=== PATIENT | female | born 1985 | race Caucasian/White ===

== ENCOUNTER 2020-08-27 01:26 | Inpatient (IN) | payer OTHER ==
--- NOTE | 2020-08-27 02:21 | PDOC ---
History of Present Illness - General Chief Complaint: Pain Stated Complaint: ABD PAIN Time Seen by Provider: 08/27/20 01:51 History Source: Patient - History of Present Illness Initial Comments: 08/27/20 03:42 35-year-old female complaining of right upper quadrant and epigastric pain since 10 PM. Patient reports that she recently gave 5-1/2 weeks ago normal vaginal delivery. Complaining of heavy vaginal bleeding for 6 hours yesterday today with small amount of spotting, patient reports pelvic cramping. denies vaginal bleeding today. Denies fever/chills, nausea, vomiting. patient is not currently breast feeding. PMHX: leukocytosis 08/27/20 04:07 Past History - Medical History Allergies/Adverse Reactions: Allergies Allergy/AdvReac Type Severity Reaction Status Date / Time sulfamethoxazole Allergy Verified 08/27/20 02:01 Home Medications: Ambulatory Orders NK [No Known Home Medication] 08/27/20 - Reproductive History Is Patient Now?: No - Psycho-Social/Smoking History Smoking History: Never smoked Have you smoked in the past 12 months: No Information on smoking cessation initiated: No - Substance Abuse Hx (Audit-C & DAST Scrn) How often the patient has a drink containing alcohol: Never Score: In Men: 4 or > Positive; In Women: 3 or > Positive: 0 Screen Result (Pos requires Nsg. Audit-10AR): Negative In the last yr the pt used illegal drug/Rx for NonMed reason: No Score: Yes response is considered Positive: 0 Screen Result (Positive result requires Nsg. DAST-10): Negative Review of Systems - Review of Systems Able to Perform ROS?: Yes Is the patient limited Algerian proficient: No Constitutional: No: Symptoms Reported, See HPI, Chills, Diaphoresis, Fever, Loss of Appetite, Malaise, Night Sweats, Weakness, Weight Stable, Unintentional Wgt. Loss, Unexplained wgt Loss, Other HEENTM: Yes: Other ABD/GI: Yes: Abdominal cramping : No: Symptoms Reported, See HPI, Burning, Dysuria, Discharge, Frequency, Flank Pain, Hematuria, Incontinence, Pain, Urgency, Testicular Mass, Testicular Swelling, Lesions, Testicular Pain, Other Integumentary: Yes: Other (no breast pain) *Physical Exam - Vital Signs Last Vital Signs Temp Pulse Resp BP Pulse Ox 98.7 F 78 15 152/93 99 08/27/20 01:51 08/27/20 01:51 08/27/20 01:51 08/27/20 01:51 08/27/20 01:51 - Physical Exam General Appearance: Yes: Appropriately Dressed HEENT: positive: Other (no breast tenderness) Respiratory/Chest: positive: Lungs Clear, Normal Breath Sounds Female Pelvic Exam: positive: normal external exam, cervical os closed, normal adnexa, other (minimal vaginal bleeding in vault). negative: CMT Gastrointestinal/Abdominal: positive: Normal Bowel Sounds, Tender (RUQ/ epigastric), Soft Musculoskeletal: positive: Normal Inspection. negative: CVA Tenderness Integumentary: positive: Normal Color, Dry, Warm Neurologic: positive: Fully Oriented, Alert ED Treatment Course - LABORATORY CBC & Chemistry Diagram: 08/27/20 02:00 08/27/20 02:00 - RADIOLOGY Radiology Studies Ordered: Category Date Time Status ABDOMEN US -LIMITED [US] Stat Ultrasound 08/27/20 01:50 Taken TRANSVAGINAL ULTRASOUND US [US] Stat Ultrasound 08/27/20 01:50 Taken ED Progress Note - Progress Note Progress Note: 08/27/20 04:08 A: acute cholecystitis; retained products of conception? P: IVF cbc cmp US pain control Medical Decision Making - Medical Decision Making 08/27/20 02:20 Abdominal US: Right upper quadrant ultrasound: The liver is fatty and enlarged up to 18.9 cm, without mass or biliary duct dilation. The gallbladder is distended with stones and sludge and demonstrates a positive sonographic Davis sign but no wall thickening or perich olecystic fluid.. The CBD is not dilated and measures6 millimeters in diameter. Right kidney measures 12.7centimeters in length and is unremarkable. The pancreas and aorta are obscured. Abdominal duplex: The main portal vein demonstrates normal hepatopedal flow.Enlarged fatty liver. Moderate suspicion for acute cholecystitis without biliary duct dilation. 08/27/20 02:27 TVUS: Pelvic ultrasound: Uterus is anteverted and measures 9.4centimeters in length. The endometrium is 2.6 cm in thickness, heterogeneous and hypervascular, highly suspicious for retained products of conception. There are no fibroids. The right ovary measures 2.9centimeters in length, contains a 1.8 cm cyst and demonstrates normal flow. Left ovary not visualized. There is no significant free fluid. Pelvic duplex: There is normal arterial and venous flow in the right ovary. 08/27/20 03:51 08/27/20 04:[address] kay ultrasound reviewed. Recommends outpatient PHOTOGRAPHIC ENGINEER follow-up. Reviewed results with patient discussed acute cholecystitis. Patient reported that she is not willing to have surgery at this point. Patient is willing to stay in the hospital for IV antibiotics. 08/27/20 04:14 patient signed out to Dr. kamara. patient to be admitted to hospital for further management of care. pending CTAP 08/27/20 05:40 Discharge - Discharge Information Problems reviewed: Yes Clinical Impression/Diagnosis: Acute cholecystitis Abdominal pain Qualifiers: Abdominal location: generalized Qualified Code(s): R10.84 - Generalized abdominal pain - Admission Yes - Follow up/Referral - Patient Discharge Instructions - Post Discharge Activity
[2020-08-27] MEDS ORDERED: HYDROmorphone HCL CARPU-JECT 2 MG/1 ML DISP.SYRIN IVPUSH ONE (02:25)
[2020-08-27] MEDS ORDERED: HYDROmorphone HCl 2 MG/ML VIAL ONE (02:36)
[2020-08-27 02:48] LABS: BASO % 0.3 % (0-2.0); EOS % 0.3 % (0-4.5); HEMOGLOBIN 13.7 GM/dL (10.7-15.3); LYMPH % 12.3 % (8-40); MCH 28.3 pg (25.7-33.7); MCHC 32.7 g/dl (32.0-36.0); MEAN CELL VOLUME 86.6 fl (80-96); MONO % 5.4 % (3.8-10.2); NEUT % 81.7 % (42.8-82.8); PLATELET COUNT 283 K/MM3 (134-434); RBC 4.85 M/mm3 (3.60-5.2); RDW 14.7 % (11.6-15.6); WHITE BLOOD COUNT 19.5 K/mm3 (4.0-10.0)
[2020-08-27] MEDS ORDERED: SODIUM CHLORIDE 1,000 ML IV STA (02:56)
[2020-08-27 03:14] LABS: BILIRUBIN,TOTAL 0.6 mg/dL (0.2-1); CALCIUM 10.1 mg/dL (8.5-10.1); CREATININE 0.7 mg/dL (0.55-1.3); POTASSIUM 4.6 mmol/L (3.5-5.1)
[2020-08-27] MEDS ORDERED: PIPERACILLIN/TAZOB 3.375 GM 3.375 GM in DEXTROSE 5%-WATER - 50 ML IVPB ONE (04:06)
[2020-08-27] MEDS ORDERED: PIPERACILLIN/TAZOB 3.375 GM 3.375 GM/50 ML BAG IVPB ONE (04:16)
--- NOTE | 2020-08-27 04:33 | PN ---
Teaching Attending Note Name of Resident: Harshil Velasquez ATTENDING PHYSICIAN STATEMENT I saw and evaluated the patient. I reviewed the resident's note and discussed the case with the resident. I agree with the resident's findings and plan as documented. SUBJECTIVE: Patient is a 35 year old woman with a PMH of Factor 5 Leiden deficiency (on Lovenox), Gestational DM and HTN, Normal vaginal delivery 5-1/2 ago and Hypothyroidism presenting to the ER with complain of right upper quadrant and epigastric pain since 10 PM. Reports heavy vaginal bleeding for 6 hours yesterday, and today had small amount of spotting with associated pelvic cramping. Not currently breast feeding. Patient denies chest pain, shortness of breath, headache, palpitations, dizziness, fever, chills, nausea, vomiting, diarrhea, constipation, dysuria, frequency, urgency, melena, hematochezia or hematuria. Denies alcohol, tobacco or illicit drug use. No sick contacts or recent travels. Family history is unremarkable. OBJECTIVE: Alert Vital Signs Period Temp Pulse Resp BP Sys/Ross Pulse Ox Last 24 Hr 98.7 F 76-89 15-20 132-152/86-93 98-99 HEENT: No Jaundice, eye redness or discharge, PERRLA, EOMI. Normocephalic, atraumatic. External ears are normal and hearing is grossly intact. No nasal discharge. Neck: Supple, nontender. No palpable adenopathy or thyromegaly. No JVD Chest: Good effort. Clear to auscultation and percussion. Heart: Regular. No S3, rub or murmur Abdomen: Not distended, soft, RUQ and lower abdominal tenderness and no HSM. No rebound or guarding. Normal bowel sounds. Ext: Peripheral pulses intact. No leg edema. Skin: Warm and dry. No petechiae, rash or ecchymosis. Neuro: Alert. Oriented x3. CN 2-12 grossly intact. Sensation grossly intact in all four extremities and DTR are symmetric. Psych: Appropriate mood and affect. Good insight. Home Medications Medication Instructions Recorded NK [No Known Home Medication] 08/27/20 Abnormal Lab Results 08/27/20 08/27/20 02:00 02:00 WBC 19.5 H Absolute Neuts (auto) 15.9 H Anion Gap 6 L Random Glucose 122 H AST 85 H ALT 68 H Current Medications Generic Name Dose Route Start Last Admin Trade Name Concepcion PRN Reason Stop Dose Admin Piperacillin Sod/Tazobactam 50 mls @ 100 mls/hr 08/27/20 04:06 08/27/20 04:28 Sod 3.375 gm/ Dextrose IVPB 08/27/20 04:35 100 mls/hr ONCE ONE Administration Protocol Lactated Ringer's 1,000 ml in 1,000 mls @ 125 mls/hr 08/27/20 04:15 Lactated Ringers Solution IV ASDIR [facility] ASSESSMENT AND PLAN: 1. Acute cholecystitis/Rule out endometritis - Right upper quadrant ultrasound report - The liver is fatty and enlarged up to 18.9 cm, without mass or biliary duct dilation. The gallbladder is distended with stones and sludge and demonstr ates a positive sonographic Davis sign but no wall thickening or pericholecystic fluid. The CBD is not dilated and measures6 millimeters in diameter. Right kidney measures 12.7 centimeters in length and is unremarkable. The pancreas and aorta are obscured. Abdominal duplex: The main portal vein demonstrates normal hepatopedal flow. Enlarged fatty liver. Moderate suspicion for acute cholecystitis without biliary duct dilation. Trans vaginal ultrasound report - Uterus is anteverted and measures 9.4 centimeters in length. Theendometrium is 2.6 cm in thickness, heterogeneous and hypervascular, highly suspicious for retained products of conception. There are no fibroids. The right ovary measures 2.9 centimeters in length, contains a 1.8 cm cyst and demonstrates normal flow. Left ovary not visualized. There is no significant free fluid. Pelvic duplex: There is normal arterial and venous flow in the right ovary. Will get CT scan of abdomen/pelvis, COVID-19 test, urinalysis, blood cultures, PT/INR, HbA1c, keep her NPO, monitor blood glucose and implement sliding scale insulin regimen, continue IV Zosyn, IV NS and consult Surgery/SHIP FITTER/ID and GI. Monitor BP closely - may need antihypertensive drugs upon discharge. EKG shows NSR at 81/minute and QTc 476 with no significant acute ischemic ST-T wave changes. Will avoid drugs that may prolong QTc. Will continue comprehensive care for all of patients comorbid conditions. 2. Obesity Counseled on the risks associated with obesity. Will provide patient all the necessary assistance, counseling and positive reinforcement to facilitate weight loss. Consult medical device assembler. 3. DVT prophylaxis - Lovenox 40 mg SQ q 24 hours. 4. Advance directives - Full code
[2020-08-27] MEDS: LACTATED RINGERS SOLUTION 1,000 ML/1,000 ML INFUS.BAG IV SCH ×3 (04:46→19:06)
--- NOTE | 2020-08-27 05:37 | CON.OBG ---
Consult Consult Specialty:: structural rigger Referred by:: Stephanie Singleton Reason for Consultation:: 6 weekswith RUQ pain - History of Present Illness Chief Complaint: 35 yrs , s/p 6wks c/o sudden onset of RUQpain all across upper abdomen , severe accompanied by nausea , no vomiting . pt is diagnosed by upper abd us , fatty liver, with sludge & stone in GB suspect ac cholecystitis History of Present Illness: Pt had with perineal repair on 07/18/20 at [facility]. high risk .. wt gain 20-25 lbs during pregn pregn complicated by GDM on Insulin 21 iu HS only . h/o GHTN during last weeks , hence labor was induced . pt states labor course was long 07/18/20 , Baby Girl,wt 7'2" Only Colostrum given to baby. Not Breast feeding . PP pt was discharged on Po Nifedipine , she took for 3 weeks She self Moniters her BP current BP range systolic 115-125,/ diastolic 75-90 during hosp stay & pp she is taking Lovenox 40 sq daily , until f/u visit with her OB PP she had telemed visits with her provider she has lochia rubra on & off accompanied by cramps sometimes, , staining, spotting, she c/o heavy menstural bleeding yesterday for6 hrs , brown staining now . - History Source History Provided By: Patient Limitations to Obtaining History: No Limitations - Past Medical History MERIT SYSTEM DIRECTOR: No: Migraine, Seizure Cardio/Vascular: Yes: HTN (gestational htn rx po nifedipine 3 wks pp ), Other (pt on prophylactic Lovenox pp 40 mg sq ). No: Deep Vein Thrombosis, Murmur Pulmonary: No: Asthma Hepatobiliary: Yes: Cholelithiasis, Cholecystitis Renal/: No: UTI ...LMP: 08/27/20 (pt is post 6 weeks ) ...: No ...: 2 (G1 03/17/2019 sp ab , d&C done ) ...Para: 1 (07/18/2019 girl , 7'2' [facility]) Infectious Disease: Yes: Other (denies) Psych: Yes: Other (denies). No: Addictions, Anxiety, Depression, Panic Rheumatology: Yes: Fibromyalgia (h/o wellbutrin prior to 1st , none in last 2 yrs ) Endocrine: Yes: Hypothyroidism (diagnosed during Pregn . Rx Po Synthyroid 25 mcg daily continuing ) - Past Surgical History Past Surgical History: Yes: None Additional Surgical History: h/o extraction of 4 wisdom teeth at age 13 yrs - Alcohol/Substance Use Hx Alcohol Use: No History of Substance Use: reports: None - Smoking History Smoking history: Never smoked Have you smoked in the past 12 months: No Home Medications - Allergies Allergies/Adverse Reactions: Allergies Allergy/AdvReac Type Severity Reaction Status Date / Time sulfamethoxazole Allergy Verified 08/27/20 02:01 - Home Medications Home Medications: Ambulatory Orders NK [No Known Home Medication] 08/27/20 Review of Systems - Review of Systems Constitutional: reports: Loss of Appetite, Night Sweats Eyes: reports: No Symptoms HENT: reports: No Symptoms Neck: reports: No Symptoms Cardiovascular: reports: No Symptoms Respiratory: reports: No Symptoms Gastrointestinal: reports: Abdominal Pain (upper abdomen), Nausea Genitourinary: reports: Vaginal Bleeding (on & off staining m accompanied by cramps) Breasts: reports: No Symptoms Reported Musculoskeletal: reports: No Symptoms Integumentary: reports: No Symptoms Neurological: reports: No Symptoms. denies: Headache Endocrine: reports: Other (hypothyroid) Hematology/Lymphatic: reports: No Symptoms Psychiatric: reports: No Symptoms Pain Intensity: 8 Physical Exam-SHINGLE SAWYER Vital Signs: Vital Signs Temperature 98.7 F 08/27/20 01:51 Pulse Rate 76 08/27/20 03:29 Respiratory Rate 15 08/27/20 03:29 Blood Pressure 132/86 08/27/20 03:29 O2 Sat by Pulse Oximetry (%) 98 08/27/20 04:14 Selected Entries 08/27/20 01:51 Weight 230 lb Constitutional: Yes: Well Nourished, Moderate Distress, Obese Eyes: Yes: WNL HENT: Yes: WNL, Normocephalic Neck: Yes: WNL Cardiovascular: Yes: WNL Respiratory: Yes: WNL Gastrointestinal: Yes: Soft, Abdomen, Obese, Tenderness (RUQ), Tenderness, Epig astrium. No: Distention, Vomiting ...Rectal Exam: Yes: Deferred Renal/: No: CVA Tenderness - Left, CVA Tenderness - Right, External Genitalia: Yes: Normal ....Post : Yes: Uterus firm (well involuted), Uterus non-tender, Slight lochia serosa (slight brown staining. perineum intact no sutures felt rey wound well healed) Breast(s): Yes: WNL (not BF , dario engirged) Musculoskeletal: Yes: WNL Extremities: Yes: WNL. No: Calf Tenderness Edema: No Integumentary: Yes: WNL Neurological: Yes: WNL, Alert, Oriented ...Motor Strength: WNL Psychiatric: Yes: WNL, Alert, Oriented Labs: CBC, BMP 08/27/20 02:00 08/27/20 02:00 Problem List - Problems (1) Abdominal pain Code(s): R10.9 - UNSPECIFIED ABDOMINAL PAIN Qualifiers: Abdominal location: generalized Qualified Code(s): R10.84 - Generalized abdominal pain (2) Acute cholecystitis Code(s): K81.0 - ACUTE CHOLECYSTITIS (3) Encounter for assessment Code(s): Z39.2 - ENCOUNTER FOR ROUTINE FOLLOW-UP (4) Obesity (BMI 30-39.9) Code(s): E66.9 - OBESITY, UNSPECIFIED Assessment/Plan 35 yrs , 6 week post , on & off minimal bleeding except once yesterday for 6 hrs s/p h/o GHTN on Nifedipine discontinued , GDM on insulin , did not require post delivery on lovenox & synthyroid PNV I doubt about retained POC , ut is well involuted 9cm in size, no need of any procedure from helmet hat puncher point of view. . pt was high risk pregn , she can return to her provider for follow up Upper abdominal pain due to Gall bladder sludge & stone seen on US suspect AC Cholecystitis continue Iv Antibiotics
--- NOTE | 2020-08-27 05:42 | HP ---
CHIEF COMPLAINT: Pelvic cramps/vaginal spotting/RUQ pain PCP:None HISTORY OF PRESENT ILLNESS: Ms. Hilton is a 35F w pmhx factor V leiden deficiency on lovenox injections, hypothyroidism, gestational diabetes, and gestational hypertension reports to the emergency department for 10 days of pelvic cramping and abnormal vaginal bleeding and 1 day of RUQ pain. The patient notes that she also has developed pelvic cramping that is most concerning for her as well as 6 hours of abnormal vaginal bleeding yesterday. She reports heavy vaginal bleeds that started yesterday and continued into today. The patient notes she has given via vaginal delivery 5 1/2 weeks ago without complications. She notes that she started experiencing RUQ pain 10 days ago which she describes as a dull achey sensation in a band like distribution around her epigastrum and mostly in RUQ. She rates the pain to be a 9/10. Denies fever/chills, nausea, vomiting. patient is not currently breast feeding. Patient denies chest pain, shortness of breath, abdominal pain, headache, palpitations, dizziness, fever, chills, nausea, vomiting, diarrhea, constipation, dysuria, frequency, urgency, melena, hematochezia or hematuria. Denies alcohol, tobacco or illicit drug use. No sick contacts or recent travels. Allergies sulfamethoxazole Allergy (Verified 08/27/20 02:01) HOME MEDICATIONS: Home Medications Medication Instructions Recorded NK [No Known Home Medication] 08/27/20 REVIEW OF SYSTEMS See above PHYSICAL EXAMINATION Vital Signs - 24 hr 08/27/20 08/27/20 08/27/20 01:51 02:49 03:29 Temperature 98.7 F Pulse Rate 78 Pulse Rate [ 89 76 Radial] Respiratory 15 20 15 Rate Blood Pressure 152/93 Blood Pressure 142/90 132/86 [Left Arm] O2 Sat by Pulse 99 98 98 Oximetry (%) 08/27/20 04:14 Temperature Pulse Rate Pulse Rate [ Radial] Respiratory Rate Blood Pressure Blood Pressure [Left Arm] O2 Sat by Pulse 98 Oximetry (%) GENERAL: Awake, alert, and fully oriented, in no acute distress. HEAD: Normal with no signs of trauma. LUNGS: Breath sounds equal, clear to auscultation bilaterally. No wheezes, and no crackles. No accessory muscle use. HEART: Regular rate and rhythm, normal S1 and S2 without murmur, rub or gallop. ABDOMEN: RUQ pain, LLQ and RLQ abdominal cramping, normoactive bowel sounds no masses. No hepatomegaly or splenomegaly. LOWER EXTREMITIES: 2+ pulses, warm, well-perfused. No calf tenderness. No peripheral edema. Laboratory Results - last 24 hr 08/27/20 08/27/20 08/27/20 02:00 02:00 02:00 WBC 19.5 H RBC 4.85 Hgb 13.7 Hct 42.0 MCV 86.6 MCH 28.3 MCHC 32.7 RDW 14.7 Plt Count 283 MPV 9.0 Absolute Neuts (auto) 15.9 H Neutrophils % 81.7 Lymphocytes % 12.3 Monocytes % 5.4 Eosinophils % 0.3 Basophils % 0.3 Nucleated RBC % 0 Sodium 137 Potassium 4.6 Chloride 102 Carbon Dioxide 29 Anion Gap 6 L BUN 12.0 Creatinine 0.7 Est GFR (CKD-EPI)AfAm 129.19 Est GFR (CKD-EPI)NonAf 111.47 Random Glucose 122 H Calcium 10.1 Total Bilirubin 0.6 AST 85 H ALT 68 H Alkaline Phosphatase 107 Total Protein 8.0 Albumin 4.0 Lipase 156 Serum , Qual Indeterminate Blood Type Antibody Screen 08/27/20 02:00 WBC RBC Hgb Hct MCV MCH MCHC RDW Plt Count MPV Absolute Neuts (auto) Neutrophils % Lymphocytes % Monocytes % Eosinophils % Basophils % Nucleated RBC % Sodium Potassium Chloride Carbon Dioxide Anion Gap BUN Creatinine Est GFR (CKD-EPI)AfAm Est GFR (CKD-EPI)NonAf Random Glucose Calcium Total Bilirubin AST ALT Alkaline Phosphatase Total Protein Albumin Lipase Serum , Qual Blood Type A POSITIVE Antibody Screen Negative ASSESSMENT/PLAN: Ms. Hilton is a 35F w/o any significant pmhx reports to the emergency department for 2 days of RUQ pain and 1 day of pelvic cramping and abnormal vaginal bleeding. #Abnormal vaginal bleed - Zosyn coverage for both possible endometritis and Cholecystitis - ID consulted - Dr. Rios - CTAP pending - Vaginal US suggest retained POC - Qa Auditor - does not suspect retained POC , no need of any procedure gynecologically - Patient should follow up outpatient for abnormal vaginal bleed #RUQ pain - likely secondary to cholecystitis - Confirmed on limited abdominal US of liver and biliary tree - Elevated LFT - Patient wishes to speak to surgeon before deciding - Dr. Dominguez consulted, will educate patient on her condition and future options - symptomatic treatment for pain control - 1mg morphine - Will get CT scan of abdomen/pelvis, - Keep her NPO - Continue IV Zosyn - GI Consultation - Dr. Jose Daniel Lock #FEN - NPO #DVT ppx - SCDs ATTENDING PHYSICIAN STATEMENT I saw and evaluated the patient. I reviewed the resident's note and discussed the case with the resident. I agree with the resident's findings and plan as documented. SUBJECTIVE: OBJECTIVE: ASSESSMENT AND PLAN:
[2020-08-27 07:58] LABS: EPI CELLS 5 /uL (0-25.1); HYALINE CASTS 0 /uL (0-3.1); PH,URINE >= 9.0 (5.0-8.0); URINE APPEARANCE CLEAR; URINE BACTERIA 76 /uL (0-1359); URINE BILIRUBIN NEGATIVE (NEGATIVE); URINE COLOR YELLOW; URINE GLUCOSE (UA) NEGATIVE (NEGATIVE); URINE KETONE NEGATIVE (NEGATIVE); URINE LEUK ESTERASE NEGATIVE (NEGATIVE); URINE NITRITE NEGATIVE (NEGATIVE); URINE PROTEIN NEGATIVE (NEGATIVE); URINE RBC 6 /uL (0-23.9); URINE UROBILINOGEN 0.2 mg/dL (0.2-1.0); URINE WBC 1 /uL (0-25.8)
[2020-08-27] MEDS ORDERED: ACETAMINOPHEN 325 MG TABLET (FP) PO PRN (09:15)
[2020-08-27] MEDS ORDERED: PIPERACILLIN/TAZOB 3.375 GM 3.375 GM in DEXTROSE 5%-WATER - 50 ML IVPB SCH (10:00)
--- NOTE | 2020-08-27 10:06 | CONSULT ---
- Consultation REQUESTING PROVIDER: CONSULT REQUEST: We have been asked to surgically evaluate this patient for gallstones, acute oj. Hospitalist:Brain Li MD HISTORY OF PRESENT ILLNESS: The patient is a 35 yo female who presents today for acute onset with upper abd pain, like a belt in her upper abd. She had nausea without any emesis. No fevers or chills. The patient gives no previous h/o abd pain similar to this before. She denies any symptoms of gastritis/ulcer disease. Her pain was relieved today with IV pain medications in the ER. The patient is s/p vaginal delivery approximately 5 1/2 weeks ago. Since her delivery she has had some intermittent vaginal bleeding with cramping. On Tuesday of this week she had 6 hours of bright red blood with clots which has now subsided and the cramping is a pain level around 2. Today she has no fever or chills. Last Tuesday she finished a 10 day course of amoxicilln. She was seen and treated in an urgent care2 weeks ago for a fever to 100.2 with complaints of sore throat/body aches. Her CoVID and flu tests were negative at that time. 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 Fibromyalgia, UTI's as child, migraines, constipation, leukocytosis PSHx: wisdom teeth extraction Home Medications Medication Instructions Recorded Enoxaparin [Lovenox -] 0 mg SQ DAILY 08/27/20 Levothyroxine [Synthroid -] 25 mcg PO DAILY 08/27/20 Allergies Allergy/AdvReac Type Severity Reaction Status Date / Time sulfamethoxazole Allergy Verified 08/27/20 02:01 REVIEW OF SYSTEMS: CONSTITUTIONAL: Absent: fever, chills CARDIOVASCULAR: Absent: chest pain, syncope, palpitations RESPIRATORY: Absent: cough, shortness of breath GASTROINTESTINAL: Present: abdominal pain, nausea, vomiting GENITOURINARY: Absent: dysuria, hematuria MUSCULOSKELETAL: Present: back pain, b/l hip pain HEMATOLOGIC/IMMUNOLOGIC: Absent: easy bleeding, easy bruising NEUROLOGIC: Absent: headache PHYSICAL EXAM: GENERAL: Awake, alert, and fully oriented, in no acute distress. EYES: sclera anicteric, conjunctiva clear. LUNGS: Clear to auscultation bilat anteriorly. No wheezes. HEART: Regular rate and rhythm. ABDOMEN: Soft, non-distended, RUQ pain with palpation. Positive [place] LOWER EXTREMITIES: 2+ DP pulses, warm, well-perfused. No calf tenderness. No peripheral edema. NEUROLOGICAL: Normal speech, gait not observed. PSYCH: Cooperative. Good eye contact. Appropriate mood and affect. Vital Signs Temperature 97.9 F 08/27/20 08:02 Pulse Rate 94 H 08/27/20 08:02 Respiratory Rate 18 08/27/20 08:10 Blood Pressure 121/80 08/27/20 08:02 O2 Sat by Pulse Oximetry (%) 100 08/27/20 08:10 Lab Results WBC 19.5 K/mm3 (4.0-10.0) H 08/27/20 02:00 RBC 4.85 M/mm3 (3.60-5.2) 08/27/20 02:00 Hgb 13.7 GM/dL (10.7-15.3) 08/27/20 02:00 Hct 42.0 % (32.4-45.2) 08/27/20 02:00 MCV 86.6 fl (80-96) 08/27/20 02:00 MCHC 32.7 g/dl (32.0-36.0) 08/27/20 02:00 RDW 14.7 % (11.6-15.6) 08/27/20 02:00 Plt Count 283 K/MM3 (134-434) 08/27/20 02:00 Sodium 137 mmol/L (136-145) 08/27/20 02:00 Potassium 4.6 mmol/L (3.5-5.1) 08/27/20 02:00 Chloride 102 mmol/L (98-107) 08/27/20 02:00 Carbon Dioxide 29 mmol/L (21-32) 08/27/20 02:00 Anion Gap 6 MMOL/L (8-16) L 08/27/20 02:00 BUN 12.0 mg/dL (7-18) 08/27/20 02:00 Creatinine 0.7 mg/dL (0.55-1.3) 08/27/20 02:00 Random Glucose 122 mg/dL (74-106) H 08/27/20 02:00 Calcium 10.1 mg/dL (8.5-10.1) 08/27/20 02:00 Blood Type A POSITIVE 08/27/20 02:00 Antibody Screen Negative 08/27/20 02:00 CT scan: no evidence of intra-abd collection, pneumoperitoneum, or bowel obstruction US: cholelithiasis, positive [place] Tranvaginal ultrasound: hyperechoic material within the endometrial cavity, suspicious for retained products of conception Problem List - Problems (1) Cholelithiasis Assessment/Plan: Pt with symptomatic cholelithiasis. Leukocytosis to 19, at baseline her level is around 14. No fevers but having continued pain when IV pain meds wear off. D/w Dr. Dominguez and recommend to continue npo/IV hydration and IV abx. She is receiving Zosyn. Hematology and windows infrastructure engineer notes reviewed. Currently plan is for transfer to her primary PHYSICAL THERAPIST CLINIC DIRECTOR doctors Problems reviewed: Yes Code(s): K80.20 - CALCULUS OF GALLBLADDER W/O CHOLECYSTITIS W/O OBSTRUCTION
[2020-08-27] MEDS ORDERED: DEXTROSE 5%-WATER - 50 ML IVPB ONE ×3 (10:07→20:53)
[2020-08-27] MEDS ORDERED: PIPERACILLIN/TAZOBACTAM 3.375 GM VIAL IVPB ONE ×3 (10:07→20:53)
--- NOTE | 2020-08-27 11:09 | EKG ---
Test Reason : Blood Pressure : / mmHG Vent. Rate : 081 BPM Atrial Rate : 081 BPM P-R Int : 156 ms QRS Dur : 102 ms QT Int : 410 ms P-R-T Axes : 037 045 061 degrees QTc Int : 476 ms POOR DATA QUALITY, INTERPRETATION MAY BE ADVERSELY AFFECTED NORMAL SINUS RHYTHM NORMAL ECG NO PREVIOUS ECGS AVAILABLE Confirmed by MD Eros, Jos eM ([id number]) on 08/27/2020 11:08:41 AM Referred By: Confirmed By:Jose M Cooney MD
--- NOTE | 2020-08-27 12:20 | PN ---
Progress Note (short form) - Note Progress Note: GI CONSULT DICTATED -- NPO / IVF -- C/W ABX -- HIDA SCAN - SURGERY EVALUATION
--- NOTE | 2020-08-27 12:44 | CON.ID ---
Consult Consult Specialty:: infectious disease Referred by:: hospitalist Reason for Consultation:: lelukocytosis - History of Present Illness Chief Complaint: abdominal pain History of Present Illness: 35 yo female s/p mid june-07/18/20 (baby now 6 weeks old) admitted with midepigastric abdominal pain complicated by gestational diabetes, HTN- stayed in the hospital for 4 days after delivery 2 weeks ago she developed fever and myalgia- seen in ur[facility]enter- covid and influenza negative- treated with augmentin whcih she completed on Tuesday (4 days ago)day before yesterday she had heavy vaginal bleeding, yesterday she had severe abdominal cramping upper abdomen and came to ED +BM yesterday not vomiting seen by gyne- not felt to have retained POC seen by GI- HIDA scan ordered started on zosyn for possible cholycystitis reports history of leukocytosis with baseline wbc of 14 currently has no PCP [facility]- had appt today - History Source History Provided By: Patient, Medical Record - Past Medical History REGRINDER: No: Migraine, Seizure Cardio/Vascular: Yes: HTN (gestational htn rx po nifedipine 3 wks pp ), Other (pt on prophylactic Lovenox pp 40 mg sq ). No: Deep Vein Thrombosis, Murmur Pulmonary: No: Asthma Hepatobiliary: Yes: Cholelithiasis, Cholecystitis Renal/: No: UTI ...LMP: 08/27/20 (pt is post 6 weeks ) ...: No Infectious Disease: Yes: Other (denies) Psych: Yes: Other (denies). No: Addictions, Anxiety, Depression, Panic Rheumatology: Yes: Fibromyalgia (h/o wellbutrin prior to 1st , none in last 2 yrs ) Endocrine: Yes: Hypothyroidism (diagnosed during Pregn . 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 denies: Chills, Fever Eyes: reports: No Symptoms HENT: reports: No Symptoms. denies: Difficult Swallowing Neck: reports: No Symptoms Cardiovascular: denies: Chest Pain Respiratory: denies: Cough, SOB Gastrointestinal: reports: Abdominal Pain (cramping in nature) Genitourinary: reports: No Symptoms Physical Exam Vital Signs: Vital Signs Temperature 97.9 F 08/27/20 08:02 Pulse Rate 94 H 08/27/20 08:02 Respiratory Rate 18 08/27/20 08:10 Blood Pressure 121/80 08/27/20 08:02 O2 Sat by Pulse Oximetry (%) 100 08/27/20 08:10 Constitutional: Yes: Well Nourished, Mild Distress (due to abdominal pain) Eyes: Yes: Conjunctiva Clear, EOM Intact HENT: Yes: Atraumatic, Normocephalic Neck: Yes: Trachea Midline Cardiovascular: Yes: Regular Rate and Rhythm Respiratory: Yes: Regular, CTA Bilaterally Gastrointestinal: Yes: Normal Bowel Sounds, Soft, Tenderness, Epigastrium, Other (mild suprapubic discomfort). No: Distention ...Rectal Exam: No: Deferred Edema: No Integumentary: No: Rash Neurological: Yes: Alert, Oriented Psychiatric: Yes: Alert, Oriented Labs: CBC, BMP 08/27/20 02:00 08/27/20 02:00 Imaging - Results Cat Scan: Report Reviewed Ultrasound: Report Reviewed Problem List - Problems (1) Leukocytosis Code(s): D72.829 - ELEVATED WHITE BLOOD CELL COUNT, UNSPECIFIED (2) Abdominal pain Code(s): R10.9 - UNSPECIFIED ABDOMINAL PAIN Qualifiers: Abdominal location: generalized Qualified Code(s): R10.84 - Generalized abdominal pain (3) Acute cholecystitis Code(s): K81.0 - ACUTE CHOLECYSTITIS Assessment/Plan started on zosyn, for hida scan and surgical consult would get blood cultures as well although value limited as antiibotics were already started
[2020-08-27] MEDS ORDERED: morphine SULFATE 4 MG/ML VIAL IVPUSH ONE (12:45)
[2020-08-27] MEDS: PIPERACILLIN/TAZOB 3.375 GM 3.375 GM in DEXTROSE 5%-WATER - 50 ML IVPB SCH ×3 (12:55→21:14)
--- NOTE | 2020-08-27 13:06 | PN ---
Physical Exam: SUBJECTIVE: Patient seen and examined at bedside. No acute events overnight. This morning patient is complaining of pain in her RUQ and LUQ. OBJECTIVE: Vital Signs Period Temp Pulse Resp BP Sys/Ross Pulse Ox Last 24 Hr 97.9 F-98.7 F 76-94 15-20 121-152/80-93 98-100 GENERAL: AAOx3, in no acute distress; obese female HEENT: NCAT, PERRLA, EOMI, sclera anicteric, conjunctiva clear, oropharynx clear w/o exudates. MMM. NECK: Normal ROM, supple, no lymphadenopathy, JVD, or masses LUNGS: CTABL no wheezes/ rhonchi/ rales. No distress, speaks in full sentences. No increased work of breathing. HEART: RRR, normal S1 S2, no M/R/G, peripheral pulses 2+ and equal b/l ABDOMEN: Soft, tenderness to palptation in RUQ and LUQ and upper mid epigastric region, + BS. No guarding or rebound. No hepatomegaly or splenomegaly. MSK: ROM WNL EXTREMITIES: Normal inspection. No peripheral edema. No clubbing or cyanosis. NEUROLOGICAL: CN II-XII intact. Normal speech, normal gait, no focal sensorimotor deficits. SKIN: Warm, Dry, normal turgor, no rashes or lesions noted Laboratory Results - last 24 hr CBC, BMP 08/27/20 02:00 08/27/20 02:00 08/27/20 08/27/20 08/27/20 02:00 02:00 02:00 WBC 19.5 H RBC 4.85 Hgb 13.7 Hct 42.0 MCV 86.6 MCH 28.3 MCHC 32.7 RDW 14.7 Plt Count 283 MPV 9.0 Absolute Neuts (auto) 15.9 H Neutrophils % 81.7 Lymphocytes % 12.3 Monocytes % 5.4 Eosinophils % 0.3 Basophils % 0.3 Nucleated RBC % 0 Sodium 137 Potassium 4.6 Chloride 102 Carbon Dioxide 29 Anion Gap 6 L BUN 12.0 Creatinine 0.7 Est GFR (CKD-EPI)AfAm 129.19 Est GFR (CKD-EPI)NonAf 111.47 Random Glucose 122 H Calcium 10.1 Total Bilirubin 0.6 AST 85 H ALT 68 H Alkaline Phosphatase 107 Total Protein 8.0 Albumin 4.0 Lipase 156 Beta HCG, Quant 3.7 Serum , Qual Indeterminate Urine Color Urine Appearance Urine pH Ur Specific [place] Urine Protein Urine Glucose (UA) Urine Ketones Urine Blood Urine Nitrite Urine Bilirubin Urine Urobilinogen Ur Leukocyte Esterase Urine WBC (Auto) Urine RBC (Auto) Urine Casts (Auto) U Epithel Cells (Auto) Urine Bacteria (Auto) Blood Type Antibody Screen 08/27/20 08/27/20 02:00 06:00 WBC RBC Hgb Hct MCV MCH MCHC RDW Plt Count MPV Absolute Neuts (auto) Neutrophils % Lymphocytes % Monocytes % Eosinophils % Basophils % Nucleated RBC % Sodium Potassium Chloride Carbon Dioxide Anion Gap BUN Creatinine Est GFR (CKD-EPI)AfAm Est GFR (CKD-EPI)NonAf Random Glucose Calcium Total Bilirubin AST ALT Alkaline Phosphatase Total Protein Albumin Lipase Beta HCG, Quant Serum , Qual Urine Color Yellow Urine Appearance Clear Urine pH >= 9.0 H Ur Specific [place] 1.038 H Urine Protein Negative Urine Glucose (UA) Negative Urine Ketones Negative Urine Blood Trace Urine Nitrite Negative Urine Bilirubin Negative Urine Urobilinogen 0.2 Ur Leukocyte Esterase Negative Urine WBC (Auto) 1 Urine RBC (Auto) 6 Urine Casts (Auto) 0 U Epithel Cells (Auto) 5 Urine Bacteria (Auto) 76 Blood Type A POSITIVE Antibody Screen Negative Active Medications Generic Name Dose Route Start Last Admin Trade Name Freq PRN Reason Stop Dose Admin Acetaminophen 650 mg 08/27/20 09:15 Tylenol - PO Q6H PRN Fever Or Pain Lactated Ringer's 1,000 ml in 1,000 mls @ 125 mls/hr 08/27/20 04:15 08/27/20 08:36 Lactated Ringers Solution IV 125 mls/hr ASDIR JAMES Administration Piperacillin Sod/Tazobactam 50 mls @ 100 mls/hr 08/27/20 10:00 08/27/20 12:55 Sod 3.375 gm/ Dextrose IVPB Not Given Q6H-IV JAMES Protocol ASSESSMENT/PLAN: 35 y/o lady with PMX of Factor V Leiden Deficiency (currently on 40 mg Lovenox), Fibromyalgia, gestational hypothyroidism, gestational hypertension, gestational diabetes, and migraines presenting with 2 days of RUQ pain and 1 day of pelvic cramping and heaving vaginal bleeding. #RUQ Pain -likely secondary to cholecysitits -abdominal US: cholelithiasis with positive Davis's sign. Hepatomegaly and diffuse fatty liver infiltration of the liver. -CT A/P: suspected retained products of conception within the uterus. possible cholelithiasis. no evidence of acute pathology within the abdomen/pelvis -LFTs elevated-continue to trend -Surgery consult: Dr. Dominguez aware will see the patient today -Patient is hesitant about surgery would like time to decide -NPO for now -c/w IV Zosyn -GI consult: Dr. Del Valle recommends c/w abx and f/u surgery reccs #Abnormal Vaginal Bleeding -s/p vaginal delivery 5.5 weeks ago at [facility] with Dr. Margi Kraus -US Transvaginal-fluid and hyperechoic material within the endometrial cavity exhibiting vascularity and strongly suspicious for retained products of conception -CT A/P-suspected retained producted of conception -Zosyn for possible endometritis coverage -Band Sawing Machine Operator consult: Dr. Olsen does not suspect retained POC, no need for any scheduling manager intervention at the moment; f/u outpt -ID on board: Dr. Rios recommends continuing with abx #Leukocytosis -patient has 15 year history of leukocytosis -was worked up but nothing was found -continue to monitor CBC #Factor V Leiden Deficiency -AC held for possible surgery -Heme consulted; f/u reccs #Hypothyroidism -c/w Synthroid 25 mg #FEN -no standing fluids -monitor lytes; replete PRN -NPO for possible surgery PPx: -DVT: SCDs dispo: continue to monitor in m/s ATTENDING PHYSICIAN STATEMENT I saw and evaluated the patient. I reviewed the resident's note and discussed the case with the resident. I agree with the resident's findings and plan as documented. SUBJECTIVE: OBJECTIVE: ASSESSMENT AND PLAN:
--- NOTE | 2020-08-27 13:53 | CONS ---
DATE OF CONSULTATION: DATE OF DICTATION: 08/27/2020 HISTORY OF PRESENT ILLNESS: Patient is a 35-year-old female G0, para 1, past medical history factor V Leiden deficiency on Lovenox injections, hypothyroidism, gestational diabetes, gestational hypertension who presented to the emergency room with the complaint of an almost 2-week history of pelvic cramping, abnormal vaginal bleeding and a 1 day history of pain localized to the right upper quadrant and epigastrium. The patient had a vaginal delivery approximately 5-1/2 weeks ago without complication. She denies nausea, vomiting, fevers, chills, melena or hematochezia. She has never had an endoscopic evaluation in the past. She does not take NSAID. PAST MEDICAL & SURGICAL HISTORY: As listed in the HPI. ALLERGIES: SULFA METHOXAZOLE. HOME MEDICATIONS: Reviewed. PHYSICAL EXAMINATION: Vital Signs: Temperature 98, pulse 78, respiratory rate 12, blood pressure 130/86, pulse oximetry 98% on room air. General: No acute distress. Pleasant female. HEENT: Anicteric sclerae. Cardiovascular: S1, S2, regular rate and rhythm. Lungs: Bilaterally clear to auscultation. Abdomen: Soft. Not distended. Some tenderness to deep palpation in the epigastrium and right upper quadrant. No rebound or guarding. Extremities: No edema. LABORATORIES: White blood cell count 19, hemoglobin 13 and hematocrit 42, MCV 86, platelet count 283. INR was not done. Sodium 137, potassium 4.6, BUN 12 and creatinine 0.7, total bilirubin 0.6, AST 85, ALT 68, alkaline phosphatase 107, lipase 156. Urine is negative. COVID-19 testing is pending. Abdomen and pelvic CT scan with contrast revealed suspected retained products of conception within the uterus, possible cholelithiasis. No additional evidence of acute pathology. There is also a questionable cyst or hemangioma in the spleen. No adenopathy and other than that the CT scan was within normal limits. She also had an abdominal ultrasound which revealed cholelithiasis, positive Davis sign and fatty infiltration of the liver. IMPRESSION: 1. Leukocytosis. 2. Right upper quadrant epigastric abdominal pain. 3. Findings of cholelithiasis and mild transaminitis. These findings may indicate acute cholecystitis. Would recommend continuing her on antibiotics, n.p.o., IV fluid. HIDA scan will be ordered and surgery evaluation. Percussion Instructor evaluation. If imagig study is negative she may benefit from an endoscopic evaluation which can be done outpt DO KATHERINE SAHA/[id number] MTDD
[2020-08-27] MEDS ORDERED: LEVOTHYROXINE NA 25 MCG TABLET (FP) PO SCH (14:15)
[2020-08-27] MEDS ORDERED: ACETAMINOPHEN 1000 MG/100 ML VIAL (NON FORMULARY) IVPB PRN (15:08)
[2020-08-27] MEDS ORDERED: MORPHINE SULFATE 2 MG/ML VIAL IM PRN (15:16)
--- NOTE | 2020-08-27 15:39 | PN ---
Teaching Attending Note Name of Resident: Fracisco Mckeon ATTENDING PHYSICIAN STATEMENT I saw and evaluated the patient. I reviewed the resident's note and discussed the case with the resident. I agree with the resident's findings and plan as documented. SUBJECTIVE: pt seen and examined OBJECTIVE: Last Vital Signs Temp Pulse Resp BP Pulse Ox 98.7 F 82 20 139/75 97 08/27/20 13:48 08/27/20 13:48 08/27/20 13:48 08/27/20 13:48 08/27/20 13:48 GENERAL: Awake, alert, and fully oriented, in no acute distress. HEAD: Normal with no signs of trauma. EYES: Pupils equal, round and reactive to light, sclera anicteric, conjunctiva clear. LUNGS: Breath sounds equal, clear to auscultation bilaterally. No wheezes, and no crackles. No accessory muscle use. HEART: Regular rate and rhythm, normal S1 and S2 ABDOMEN: Soft, nontender, not distended MUSCULOSKELETAL: Normal range of motion at all joints. No bony deformities or tenderness. No CVA tenderness. UPPER EXTREMITIES: 2+ pulses, warm, well-perfused. No cyanosis. No clubbing. No peripheral edema. LOWER EXTREMITIES: 2+ pulses, warm, well-perfused. No calf tenderness. No peripheral edema. NEUROLOGICAL: Cranial nerves II-XII intact. Normal speech. CBCD WBC 19.5 K/mm3 (4.0-10.0) H 08/27/20 02:00 RBC 4.85 M/mm3 (3.60-5.2) 08/27/20 02:00 Hgb 13.7 GM/dL (10.7-15.3) 08/27/20 02:00 Hct 42.0 % (32.4-45.2) 08/27/20 02:00 MCV 86.6 fl (80-96) 08/27/20 02:00 MCHC 32.7 g/dl (32.0-36.0) 08/27/20 02:00 RDW 14.7 % (11.6-15.6) 08/27/20 02:00 Plt Count 283 K/MM3 (134-434) 08/27/20 02:00 MPV 9.0 fl (7.5-11.1) 08/27/20 02:00 CMP Sodium 137 mmol/L (136-145) 08/27/20 02:00 Potassium 4.6 mmol/L (3.5-5.1) 08/27/20 02:00 Chloride 102 mmol/L (98-107) 08/27/20 02:00 Carbon Dioxide 29 mmol/L (21-32) 08/27/20 02:00 Anion Gap 6 MMOL/L (8-16) L 08/27/20 02:00 BUN 12.0 mg/dL (7-18) 08/27/20 02:00 Creatinine 0.7 mg/dL (0.55-1.3) 08/27/20 02:00 Calcium 10.1 mg/dL (8.5-10.1) 08/27/20 02:00 Total Bilirubin 0.6 mg/dL (0.2-1) 08/27/20 02:00 AST 85 U/L (15-37) H 08/27/20 02:00 ALT 68 U/L (13-61) H 08/27/20 02:00 Alkaline Phosphatase 107 U/L (45-117) 08/27/20 02:00 Total Protein 8.0 g/dl (6.4-8.2) 08/27/20 02:00 Albumin 4.0 g/dl (3.4-5.0) 08/27/20 02:00 Active Medications Lactated Ringer's (Lactated Ringers Solution) 1,000 ml in 1,000 mls @ 125 mls/hr IV ASDIR JAMES Last Admin: 08/27/20 08:36 Dose: 125 mls/hr Documented by: Piperacillin Sod/Tazobactam (Sod 3.375 gm/ Dextrose) 50 mls @ 100 mls/hr IVPB Q6H-IV JAMES; Protocol Last Admin: 08/27/20 12:55 Dose: Not Given Documented by: Levothyroxine Sodium (Synthroid -) 25 mcg PO DAILY@0700 [facility] ASSESSMENT AND PLAN: 35 year old woman with a 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 Reports heavy vaginal bleeding for 6 hours yesterday # Epigastric/RUQ pain - CT showing possible cholelithiasis, gallbladder mildly distended - Abx, Pain management, IVF - surgical consult appreciated - GI consult appreciated case discussed with surgery # Vaginal Bleed -hold Enoxaparin (initiated by OBGYN in post period, was not on prior) -no hx of VTE -has factor 5 leiden def -SCD for now -trend H&H, keep Hg>7 -retained POC? on imaging, OBGYN consulted, no intervention at this time. -awaiting hematology input prior to decision on surgical options hypothyroidism gestational DM/HTN Obesity DVT prophylaxis with SCD Plan: pt expressed wishes to be transferred to [facility] to be under care of her own OBGYN
--- NOTE | 2020-08-27 15:58 | CONSULT ---
Consult Consult Specialty:: hematology Reason for Consultation:: HCS - History of Present Illness Chief Complaint: 35 yof adm w abd pain History of Present Illness: Ms. Hilton is 6 w post- and adm w abd pain, inc in [facility]. Initial concern for retained products of conception and now concern for acute cholecystitis. 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 No event. Saw heme once. No lovenox during preg but maintained on ppx dosing post-. Last dose was last pm. 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 No: Deep Vein Thrombosis, Murmur Pulmonary: No: Asthma Hepatobiliary: Yes: Cholelithiasis, Cholecystitis Renal/: No: UTI ...LMP: 08/27/20 (pt is post 6 weeks ) ...: No Infectious Disease: Yes: Other (denies) Psych: Yes: Other (denies). No: Addictions, Anxiety, Depression, Panic Rheumatology: Yes: Fibromyalgia (h/o wellbutrin prior to 1st , none in last 2 yrs ) Endocrine: Yes: Hypothyroidism (diagnosed during Pregn . 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 History of Recent Travel: No Home Medications - Allergies Allergies/Adverse Reactions: Allergies Allergy/AdvReac Type Severity Reaction Status Date / Time sulfamethoxazole Allergy Verified 08/27/20 02:01 - Home Medications Home Medications: Ambulatory Orders Enoxaparin [Lovenox -] 0 mg SQ DAILY 08/27/20 Levothyroxine [Synthroid -] 25 mcg PO DAILY 08/27/20 Family Medical History Other Family History: family members with diabetes and hyperlipidemia Review of Systems - Review of Systems Gastrointestinal: reports: Abdominal Pain Physical Exam Vital Signs: Vital Signs Temperature 98.7 F 08/27/20 13:48 Pulse Rate 82 08/27/20 13:48 Respiratory Rate 20 08/27/20 13:48 Blood Pressure 139/75 08/27/20 13:48 O2 Sat by Pulse Oximetry (%) 97 08/27/20 13:48 Constitutional: Yes: Well Nourished, No Distress, Calm Eyes: Yes: WNL HENT: Yes: WNL Neck: Yes: Supple Cardiovascular: Yes: Regular Rate and Rhythm Respiratory: Yes: CTA Bilaterally Gastrointestinal: Yes: Normal Bowel Sounds, Soft, Abdomen, Obese Extremities: Yes: WNL Edema: No Integumentary: Yes: WNL Labs: CBC, BMP 08/27/20 02:00 08/27/20 02:00 Assessment/Plan 6 wks post- tx'd w lovenox ppx in setting of FVL mut. No h/o thrombosis abd pain, possible acute cholecystitis. Awaiting HIDA, surg input Pt at high risk for thrombosis. If she undergoes surg, would resume a/c ppx as soon as feasible. She wants to switch to pill, but adequate ppx w DOAC in obesity would be a concern. Can consider finite post-op course coumadin. following w you
--- NOTE | 2020-08-27 18:22 | DS ---
Physical Exam: SUBJECTIVE: Patient seen and examined at bedside. c/o abdominal pain. OBJECTIVE: Vital Signs Period Temp Pulse Resp BP Sys/Ross Pulse Ox Last 24 Hr 97.9 F-98.7 F 76-94 15-20 121-152/75-93 97-100 PHYSICAL EXAM GENERAL: AAOx3, in no acute distress; obese female HEENT: NCAT, PERRLA, EOMI, sclera anicteric, conjunctiva clear, oropharynx clear w/o exudates. MMM. NECK: Normal ROM, supple, no lymphadenopathy, JVD, or masses LUNGS: CTABL no wheezes/ rhonchi/ rales. No distress, speaks in full sentences. No increased work of breathing. HEART: RRR, normal S1 S2, no M/R/G, peripheral pulses 2+ and equal b/l ABDOMEN: Soft, tenderness to palptation in RUQ and LUQ and upper mid epigastric region, + BS. No guarding or rebound. No hepatomegaly or splenomegaly. MSK: ROM WNL EXTREMITIES: Normal inspection. No peripheral edema. No clubbing or cyanosis. NEUROLOGICAL: CN II-XII intact. Normal speech, normal gait, no focal sensorimotor deficits. SKIN: Warm, Dry, normal turgor, no rashes or lesions noted LABS Laboratory Results - last 24 hr CBC, BMP 08/27/20 02:00 08/27/20 02:00 08/27/20 08/27/20 08/27/20 02:00 02:00 02:00 WBC 19.5 H RBC 4.85 Hgb 13.7 Hct 42.0 MCV 86.6 MCH 28.3 MCHC 32.7 RDW 14.7 Plt Count 283 MPV 9.0 Absolute Neuts (auto) 15.9 H Neutrophils % 81.7 Lymphocytes % 12.3 Monocytes % 5.4 Eosinophils % 0.3 Basophils % 0.3 Nucleated RBC % 0 Sodium 137 Potassium 4.6 Chloride 102 Carbon Dioxide 29 Anion Gap 6 L BUN 12.0 Creatinine 0.7 Est GFR (CKD-EPI)AfAm 129.19 Est GFR (CKD-EPI)NonAf 111.47 Random Glucose 122 H Calcium 10.1 Total Bilirubin 0.6 AST 85 H ALT 68 H Alkaline Phosphatase 107 Total Protein 8.0 Albumin 4.0 Lipase 156 Beta HCG, Quant 3.7 Serum , Qual Indeterminate Urine Color Urine Appearance Urine pH Ur Specific Points Urine Protein Urine Glucose (UA) Urine Ketones Urine Blood Urine Nitrite Urine Bilirubin Urine Urobilinogen Ur Leukocyte Esterase Urine WBC (Auto) Urine RBC (Auto) Urine Casts (Auto) U Epithel Cells (Auto) Urine Bacteria (Auto) Blood Type Antibody Screen 08/27/20 08/27/20 02:00 06:00 WBC RBC Hgb Hct MCV MCH MCHC RDW Plt Count MPV Absolute Neuts (auto) Neutrophils % Lymphocytes % Monocytes % Eosinophils % Basophils % Nucleated RBC % Sodium Potassium Chloride Carbon Dioxide Anion Gap BUN Creatinine Est GFR (CKD-EPI)AfAm Est GFR (CKD-EPI)NonAf Random Glucose Calcium Total Bilirubin AST ALT Alkaline Phosphatase Total Protein Albumin Lipase Beta HCG, Quant Serum , Qual Urine Color Yellow Urine Appearance Clear Urine pH >= 9.0 H Ur Specific Points 1.038 H Urine Protein Negative Urine Glucose (UA) Negative Urine Ketones Negative Urine Blood Trace Urine Nitrite Negative Urine Bilirubin Negative Urine Urobilinogen 0.2 Ur Leukocyte Esterase Negative Urine WBC (Auto) 1 Urine RBC (Auto) 6 Urine Casts (Auto) 0 U Epithel Cells (Auto) 5 Urine Bacteria (Auto) 76 Blood Type A POSITIVE Antibody Screen Negative HOSPITAL COURSE: 35 year old woman with a 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 Reports heavy vaginal bleeding for 6 hours yesterday. Patient had a transvaginal ultrasound and CT A/P done which showed retained products of conceptions. Patient was evaluated by surgery for her RUQ pain and US of the abdomen showed gallstones with sludge. Due to her Factor V Leiden Deficiency and her getting a therapeutic dose of Lovenox last night she was considered a high risk for surge ry and it was deferred. Patient was transferred to [facility] for OC under the care of her OBGYN that delivered her baby 6 weeks ago, [address] Kraus. Date of Admission:08/27/20 08/27/20-EKG-NSR, normal sinus rhythm 08/27/20-CT A/P-suspected retained products of conceptions within the uterus. pos sible cholelithiasis. no additional evidence of acute pathology within the abdomen or pelvis. 08/27/20-US Abdomen- cholelithiasis with positve Davis's sign. Hepatomegaly and diffuse fatty infiltration of the liver. 08/27/20-Transvaginal US-fluid and hyperechoic material within the endometrial cavity exhibiting vascularity and strongly suspicious for retained products of conception. Date of Discharge: 08/27/20 Minutes to complete discharge: 36 Discharge Summary Problems reviewed: Yes Reason For Visit: RETAINED PRODUCT OF CONCEPTION, ABDOMINAL PAIN Current Active Problems Abdominal pain (Acute) Acute cholecystitis (Acute) Cholelithiasis (Acute) Encounter for assessment (Acute) Leukocytosis (Acute) Obesity (BMI 30-39.9) (Acute) Retained products of conception (Acute) Condition: Stable - Instructions Disposition: TRANSFER ACUTE CARE/OTHER HOSP - Home Medications Comprehensive Discharge Medication List: Ambulatory Orders Enoxaparin [Lovenox -] 0 mg SQ DAILY 08/27/20 Levothyroxine [Synthroid -] 25 mcg PO DAILY 08/27/20 This patient is new to me today: Yes Date on this admission: 08/27/20 Emergency Visit: No Critical Care patient: No - Discharge Referral Referred to [facility] No ATTENDING PHYSICIAN STATEMENT I saw and evaluated the patient. I reviewed the resident's note and discussed the case with the resident. I agree with the resident's findings and plan as documented. SUBJECTIVE: OBJECTIVE: ASSESSMENT AND PLAN:
[2020-08-27 18:46] VITALS: BMI 31.9
[2020-08-28 02:05] VITALS: BP 127/79; PULSE 83; TEMP 98.3
== END 2020-08-28 02:21 | disposition short-term general hospital (02) | DRG 776 ==
LOC: JER 01:26 → JERBED 04:10 → J8W 08:58
PROVIDERS: ADMIT Internal Medicine; ATTEND Student in an Organized Health Care Education/Training Program
DX: O90.89 Other complications of the puerperium, not elsewhere classified (principal); K80.00 Calculus of gallbladder with acute cholecystitis without obstruction; O99.13 Other diseases of the blood and blood-forming organs and certain disorders involving the immune mechanism complicating the puerperium; D68.51 Activated protein C resistance; O73.1 Retained portions of placenta and membranes, without hemorrhage; O99.63 Diseases of the digestive system complicating the puerperium; D72.829 Elevated white blood cell count, unspecified; R10.84 Generalized abdominal pain; O24.439 Gestational diabetes mellitus in the puerperium, unspecified control; O99.285 Endocrine, nutritional and metabolic diseases complicating the puerperium; O16.5 Unspecified maternal hypertension, complicating the puerperium; K76.0 Fatty (change of) liver, not elsewhere classified; O99.215 Obesity complicating the puerperium; R10.11 Right upper quadrant pain; N93.8 Other specified abnormal uterine and vaginal bleeding; O72.2 Delayed and secondary postpartum hemorrhage
CPT/HCPCS: 36415; 74177-TC; 76705-TC; 76830-TC; 80053; 81003; 82962; 83690; 84702; 84703; 85025; 86850; 86900; 86901; 87040; 93005; 93010; 99285-25; J0131; U0003